=== PATIENT | female | born 1990 | race African-American/Black ===

== ENCOUNTER 2017-04-07 10:21 | Emergency (ER) | payer MEDICAID ==
[~2017-04-07] VITALS: Ht 160 cm; Wt 65.0 kg
[2017-04-07 10:22] VITALS: BP 111/60
[2017-04-07 11:56] LABS: CLARITY URINE CLEAR (CLEAR); COLOR URINE YELLOW (YELLOW); KETONES URINE 1+ (NEGATIVE); LEUKOCYTE ESTERASE URINE 1+ (NEGATIVE); NITRITE URINE NEGATIVE (NEGATIVE); OCCULT BLOOD URINE NEGATIVE (NEGATIVE); PH URINE 7.5 (4.5-8.0); PROTEIN URINE NEGATIVE (NEGATIVE); SPECIFIC GRAVITY URINE 1.032 (1.005-1.030)
[2017-04-07 12:19] LABS: INR 1.1; PROTHROMBIN TIME 11.4 sec (9.4-11.6)
[2017-04-07 12:21] LABS: BASOPHILS % 0.4 % (0.0-2.0); EOSINOPHILS % 0.3 % (0.0-5.0); HEMATOCRIT. 39.3 % (36.0-48.0); HEMOGLOBIN. 13.2 g/dL (12.0-16.0); LYMPHOCYTES % 21.6 % (20.0-50.0); MEAN CORPUSCULAR HEMOGLOBIN 30.5 pg (28.0-32.0); MEAN CORPUSCULAR VOLUME 90.8 fL (81.0-99.0); MEAN PLATELET VOLUME 9.7 fl (7.4-10.4); NEUTROPHILS % 69.7 % (40.0-76.0); PLATELET 210 x1000/uL (130-400); RED BLOOD CELL COUNT 4.33 mill/uL (4.2-5.4); RED CELL DISTRIBUTION WIDTH 13.7 % (11.6-14.6)
[2017-04-07 12:24] LABS: CHLORIDE 103 mEq/L (98-107)
[2017-04-07 12:39] LABS: B-HCG QUANTITATIVE 75842 mIU/mL (<3)
== END 2017-04-07 13:38 | disposition home or self-care (01) ==
LOC: ER 10:29
DX: O26.891 Other specified pregnancy related conditions, first trimester (principal); R10.30 Lower abdominal pain, unspecified; O21.9 Vomiting of pregnancy, unspecified; O23.41 Unspecified infection of urinary tract in pregnancy, first trimester; Z3A.01 Less than 8 weeks gestation of pregnancy
CPT/HCPCS: 36415; 76801; 80053; 81001; 81025; 83690; 84702; 85025; 85610; 86850; 86900; 99285

== ENCOUNTER 2017-11-14 15:26 | Emergency (ER) | payer MEDICAID ==
[~2017-11-14] VITALS: Ht 157.5 cm; Wt 68.0 kg
[2017-11-14] MEDS ORDERED: ACETAMINOPHEN 325MG TABLET PO STA (15:41)
[2017-11-14] MEDS ORDERED: ONDANSETRON HCL 4MG/2ML INJ IV STA (15:41)
[2017-11-14] MEDS ORDERED: SODIUM CHLORIDE 0.9% 1000ML BAG (SEPSIS BOLUS) IV ONE (15:45)
[2017-11-14 16:05] LABS: BASOPHILS % 0.5 % (0.0-2.0); EOSINOPHILS % 0.1 % (0.0-5.0); HEMATOCRIT. 42.5 % (36.0-48.0); HEMOGLOBIN. 14.6 g/dL (12.0-16.0); LYMPHOCYTES % 14.1 % (20.0-50.0); MEAN CORPUSCULAR HEMOGLOBIN 31.7 pg (28.0-32.0); MEAN CORPUSCULAR VOLUME 92.2 fL (81.0-99.0); MEAN PLATELET VOLUME 9.6 fl (7.4-10.4); MONOCYTES % 5.5 % (2.0-8.0); NEUTROPHILS % 79.8 % (40.0-76.0); PLATELET 207 x1000/uL (130-400); RED BLOOD CELL COUNT 4.61 mill/uL (4.2-5.4); RED CELL DISTRIBUTION WIDTH 13.8 % (11.6-14.6)
[2017-11-14 16:11] LABS: CHLORIDE 102 mEq/L (98-107)
[2017-11-14 16:18] LABS: ETHANOL BLOOD < 10 mg/dL
[2017-11-14 16:21] LABS: INR 1.1; PROTHROMBIN TIME 11.4 sec (9.1-11.1)
[2017-11-14 16:41] LABS: B-HCG QUANTITATIVE 66160 mIU/mL (<3)
[2017-11-14 16:52] LABS: CLARITY URINE CLOUDY (CLEAR); COLOR URINE DARK YELLOW (YELLOW); KETONES URINE 3+ (NEGATIVE); LEUKOCYTE ESTERASE URINE 1+ (NEGATIVE); NITRITE URINE NEGATIVE (NEGATIVE); OCCULT BLOOD URINE NEGATIVE (NEGATIVE); PH URINE 5.5 (4.5-8.0); PROTEIN URINE TRACE (NEGATIVE); SPECIFIC GRAVITY URINE 1.041 (1.005-1.030)
[2017-11-14 17:03] LABS: *AMPHETAMINES SCREEN URINE NEGATIVE (NEGATIVE); *BARBITURATES SCREEN URINE NEGATIVE (NEGATIVE); *BENZODIAZEPINES SCREEN URINE NEGATIVE (NEGATIVE); *COCAINE SCREEN URINE NEGATIVE (NEGATIVE)
[2017-11-14 17:04] LABS: METHADONE URINE SCREEN NEGATIVE (NEGATIVE); OPIATES URINE SCREEN NEGATIVE (NEGATIVE); PHENCYCLIDINE URINE SCREEN NEGATIVE (NEGATIVE)
[2017-11-14 17:05] LABS: CANNABINOID URINE SCREEN PRESUMTIVE POSITIVE (NEGATIVE)
[2017-11-14 20:40] VITALS: BP 104/57
== END 2017-11-14 20:48 | disposition home or self-care (01) ==
LOC: ER 15:45
DX: O20.0 Threatened abortion (principal); O23.31 Infections of other parts of urinary tract in pregnancy, first trimester; F12.10 Cannabis abuse, uncomplicated; O21.0 Mild hyperemesis gravidarum; Z3A.01 Less than 8 weeks gestation of pregnancy
CPT/HCPCS: 36415; 76801; 76817; 80053; 80305; 81003; 81025; 84702; 85025; 85610; 86850; 86900; 86901; 87086; 87804; 96361; 96374; 99285; G0482; J2405; J7030

== ENCOUNTER 2020-12-09 16:26 | Emergency (ER) | payer MEDICAID ==
[~2020-12-09] VITALS: Ht 157.5 cm; Wt 69.0 kg
[2020-12-09] MEDS ORDERED: METOCLOPRAMIDE HCL 10MG/2ML VIAL IV STA (19:48)
[2020-12-09] MEDS ORDERED: SODIUM CHLORIDE 0.9% 1,000 ML IV ONE (20:00)
[2020-12-09 20:34] LABS: BASOPHILS % 0.3 % (0.0-2.0); EOSINOPHILS % 0.2 % (0.0-5.0); HEMOGLOBIN. 13.4 g/dL (12.0-16.0); MEAN CORPUSCULAR HEMOGLOBIN 31.8 pg (28.0-32.0); MEAN CORPUSCULAR VOLUME 92.9 fL (81.0-99.0); MEAN PLATELET VOLUME 9.9 fl (7.4-10.4); MONOCYTES % 5.8 % (2.0-8.0); NEUTROPHILS % 78.7 % (40.0-76.0); PLATELET 218 x1000/uL (130-400); RED CELL DISTRIBUTION WIDTH 12.9 % (11.6-14.6)
[2020-12-09 20:37] LABS: CHLORIDE 103 mEq/L (98-107)
[2020-12-09 20:38] LABS: CLARITY URINE CLEAR (CLEAR); COLOR URINE DARK YELLOW (YELLOW); KETONES URINE 4+ (NEGATIVE); LEUKOCYTE ESTERASE URINE NEGATIVE (NEGATIVE); NITRITE URINE NEGATIVE (NEGATIVE); OCCULT BLOOD URINE NEGATIVE (NEGATIVE); PROTEIN URINE TRACE (NEGATIVE); SPECIFIC GRAVITY URINE 1.035 (1.005-1.030)
[2020-12-09 20:57] LABS: METHADONE URINE SCREEN NEGATIVE (NEGATIVE); OPIATES URINE SCREEN NEGATIVE (NEGATIVE); PHENCYCLIDINE URINE SCREEN NEGATIVE (NEGATIVE)
[2020-12-09 20:58] LABS: *AMPHETAMINES SCREEN URINE NEGATIVE (NEGATIVE); *BARBITURATES SCREEN URINE NEGATIVE (NEGATIVE); *BENZODIAZEPINES SCREEN URINE NEGATIVE (NEGATIVE); *COCAINE SCREEN URINE NEGATIVE (NEGATIVE)
[2020-12-09 21:13] LABS: B-HCG QUANTITATIVE 123052 mIU/mL (<3)
[2020-12-09 21:16] LABS: CANNABINOID URINE SCREEN PRESUMTIVE POSITIVE (NEGATIVE)
[2020-12-09] MEDS ORDERED: CEPH500C2 MT (22:00)
[2020-12-09] MEDS ORDERED: METO-293 MT (22:00)
[2020-12-09] MEDS ORDERED: CEPHALEXIN 250MG CAPSULE PO ONE (22:00)
[2020-12-09 22:16] VITALS: BP 112/65
== END 2020-12-09 22:28 | disposition home or self-care (01) ==
LOC: ER 16:26
DX: O23.41 Unspecified infection of urinary tract in pregnancy, first trimester (principal); B96.89 Other specified bacterial agents as the cause of diseases classified elsewhere; N39.0 Urinary tract infection, site not specified; O99.321 Drug use complicating pregnancy, first trimester; F12.90 Cannabis use, unspecified, uncomplicated; Z3A.01 Less than 8 weeks gestation of pregnancy
CPT/HCPCS: 36415; 76801; 76817; 80053; 80305; 81003; 81025; 83690; 84702; 85025; 96361; 96374; 99284; J2765; J7030

== ENCOUNTER 2020-12-18 16:16 | Emergency (ER) | payer MEDICAID ==
[~2020-12-18] VITALS: Ht 157.5 cm; Wt 66.5 kg
[~2020-12-18 16:16] MED LIST: CEPH500C2 MT; METO-293 MT
[2020-12-18 20:28] LABS: BASOPHILS % 0.6 % (0.0-2.0); EOSINOPHILS % 0.2 % (0.0-5.0); HEMATOCRIT. 44.5 % (36.0-48.0); HEMOGLOBIN. 15.2 g/dL (12.0-16.0); LYMPHOCYTES % 13.8 % (20.0-50.0); MEAN CORPUSCULAR HEMOGLOBIN 31.6 pg (28.0-32.0); MEAN CORPUSCULAR VOLUME 92.3 fL (81.0-99.0); MEAN PLATELET VOLUME 9.9 fl (7.4-10.4); MONOCYTES % 6.7 % (2.0-8.0); NEUTROPHILS % 78.7 % (40.0-76.0); RED BLOOD CELL COUNT 4.82 mill/uL (4.2-5.4); RED CELL DISTRIBUTION WIDTH 12.7 % (11.6-14.6)
[2020-12-18 20:29] LABS: PLATELET 235 x1000/uL (130-400)
[2020-12-18 20:34] LABS: CHLORIDE 102 mEq/L (98-107)
[2020-12-18 21:01] LABS: B-HCG QUANTITATIVE 185270 mIU/mL (<3)
[2020-12-18 21:51] LABS: CLARITY URINE CLEAR (CLEAR); COLOR URINE DARK YELLOW (YELLOW); KETONES URINE 4+ (NEGATIVE); LEUKOCYTE ESTERASE URINE NEGATIVE (NEGATIVE); NITRITE URINE NEGATIVE (NEGATIVE); OCCULT BLOOD URINE NEGATIVE (NEGATIVE); PROTEIN URINE 1+ (NEGATIVE); SPECIFIC GRAVITY URINE 1.041 (1.005-1.030)
[2020-12-18] MEDS ORDERED: SODIUM CHLORIDE 0.9% 1,000 ML IV ONE (23:00)
[2020-12-18] MEDS ORDERED: ONDANSETRON HCL 4MG/2ML INJ IV ONE (23:00)
[2020-12-18] MEDS ORDERED: POTASSIUM CHLORIDE 20MEQ TABLET SR PO ONE (23:00)
[2020-12-19] MEDS ORDERED: CEFTRIAXONE 1 G PREMIX 50 ML IV ONE (01:00)
[2020-12-19 01:56] VITALS: BP 112/62
== END 2020-12-19 02:47 | disposition home or self-care (01) ==
LOC: ER 16:16
DX: O21.0 Mild hyperemesis gravidarum (principal); E87.6 Hypokalemia; O23.31 Infections of other parts of urinary tract in pregnancy, first trimester; N39.0 Urinary tract infection, site not specified; Z3A.01 Less than 8 weeks gestation of pregnancy; F12.10 Cannabis abuse, uncomplicated
CPT/HCPCS: 36415; 80053; 81003; 81025; 84702; 85025; 96361; 96365; 96375; 99284; J0696; J2405; J7030

== ENCOUNTER 2022-07-23 22:57 | Emergency (ER) | payer MEDICAID ==
[~2022-07-23] VITALS: Ht 157.5 cm; Wt 69.0 kg
[2022-07-23 23:28] VITALS: BP 121/69; PULSE 68; RESP 18; O2SAT 99
[2022-07-24] MEDS ORDERED: LIDOCAINE HCL/PF 1% 10 MG/ML 5ML VIAL INFIL ONE (00:45)
[2022-07-24] MEDS ORDERED: CEPH500C2 MT (01:45)
[2022-07-24] MEDS ORDERED: ACET-2708 MT (01:54)
[2022-07-24] MEDS ORDERED: HYDROCODONE/ACETAMINOPHEN 5/325MG TABLET PO ONE (02:00)
[2022-07-24] MEDS ORDERED: ACETAMINOPHEN 325MG TABLET PO ONE (02:00)
== END 2022-07-24 02:08 | disposition home or self-care (01) ==
LOC: ER 22:57
DX: L03.011 Cellulitis of right finger (principal); Z68.27 Body mass index [BMI] 27.0-27.9, adult
CPT/HCPCS: 10060; 99283; J3490; Z7610 ×2

== ENCOUNTER 2022-07-28 18:34 | Emergency (ER) | payer MEDICAID ==
[~2022-07-28] VITALS: Ht 167.6 cm; Wt 67.0 kg
[~2022-07-28 18:34] MED LIST changes: +ACET-2708 MT
[2022-07-28 18:52] VITALS: BP 103/58
[2022-07-29] MEDS ORDERED: SULF1TAB47 MT (00:41)
== END 2022-07-28 20:00 | disposition left against medical advice (07) ==
LOC: ER 18:34
DX: M79.89 Other specified soft tissue disorders (principal); Z53.21 Procedure and treatment not carried out due to patient leaving prior to being seen by health care provider
CPT/HCPCS: 99281

== ENCOUNTER 2022-07-28 20:48 | Emergency (ER) | payer MEDICAID ==
[~2022-07-28] VITALS: Ht 157.5 cm; Wt 81.2 kg
[2022-07-28 21:06] VITALS: BP 116/69
[2022-07-28] MEDS ORDERED: LIDOCAINE HCL/PF 1% 10 MG/ML 5ML VIAL INFIL ONE (23:30)
[2022-07-29] MEDS ORDERED: SULF1TAB47 MT (00:41)
== END 2022-07-29 01:15 | disposition home or self-care (01) ==
LOC: ER 20:48
DX: L03.011 Cellulitis of right finger (principal); F12.90 Cannabis use, unspecified, uncomplicated
CPT/HCPCS: 99283; Z7610

== ENCOUNTER 2023-05-28 19:31 | Emergency (ER) | payer MEDICAID ==
[~2023-05-28] VITALS: Ht 157.5 cm; Wt 68.0 kg
[~2023-05-28 19:31] MED LIST changes: +SULF1TAB47 MT
[2023-05-28 19:36] VITALS: BP 113/73; PULSE 70; RESP 18; TEMP 97.9; O2SAT 98
== END 2023-05-28 22:39 | disposition left against medical advice (07) ==
LOC: ER 19:31
DX: M25.512 Pain in left shoulder (principal); F12.10 Cannabis abuse, uncomplicated; Z98.890 Other specified postprocedural states
CPT/HCPCS: 99283

== ENCOUNTER 2024-01-31 22:33 | Emergency (ER) | payer SELFPAY ==
[~2024-01-31] VITALS: Ht 157.5 cm; Wt 78.0 kg
[2024-01-31 22:39] VITALS: BP 103/62; PULSE 82; RESP 18; TEMP 98; O2SAT 100
[2024-01-31] MEDS ORDERED: LIDOCAINE 5% PATCH TOP SCH (22:45)
[2024-01-31] MEDS ORDERED: ACETAMINOPHEN 325MG TABLET PO ONE (22:45)
[2024-02-01 01:08] LABS: HCG SCREEN NEGATIVE
[2024-02-01] MEDS ORDERED: ACETAMINOPHEN 325MG TABLET PO NR (01:15)
== END 2024-01-31 22:44 ==
LOC: ER 22:33
DX: M54.6 Pain in thoracic spine (principal); F12.10 Cannabis abuse, uncomplicated; Z79.899 Other long term (current) drug therapy; Z98.890 Other specified postprocedural states; V49.59XA Passenger injured in collision with other motor vehicles in traffic accident, initial encounter; Y93.89 Activity, other specified; Y92.89 Other specified places as the place of occurrence of the external cause; Y99.8 Other external cause status
CPT/HCPCS: 84703; 99283

== ENCOUNTER 2024-02-07 09:12 | Emergency (ER) | payer SELFPAY | END 2024-02-07 09:26 | disposition left against medical advice (07) | LOC: ER 09:12 | DX: M54.9 Dorsalgia, unspecified (principal); Z53.21 Procedure and treatment not carried out due to patient leaving prior to being seen by health care provider ==

== ENCOUNTER 2024-09-25 17:42 | Emergency (ER) | payer MEDICAID ==
[~2024-09-25] VITALS: Ht 162.6 cm; Wt 72.0 kg
[2024-09-25 17:50] VITALS: O2SAT 98
[2024-09-25 20:11] VITALS: BP 155/87; PULSE 99; RESP 16; TEMP 36.7; O2SAT 99
== END 2024-09-25 20:14 ==
LOC: ER 17:42
DX: T74.21XA Adult sexual abuse, confirmed, initial encounter (principal); Z98.890 Other specified postprocedural states; Z79.899 Other long term (current) drug therapy; Y92.481 Parking lot as the place of occurrence of the external cause
CPT/HCPCS: 99283; Z7610 ×2; A4606

== ENCOUNTER 2024-11-15 10:14 | Emergency (ER) | payer MEDICAID ==
[~2024-11-15] VITALS: Ht 157.5 cm; Wt 82.0 kg
[2024-11-15 10:17] VITALS: O2SAT 100
[2024-11-15 11:36] LABS: BASOPHILS % 0.7 % (0.0-2.0); EOSINOPHILS % 0.3 % (0.0-5.0); HEMATOCRIT. 35.7 % (36.0-48.0); HEMOGLOBIN. 11.9 g/dL (12.0-16.0); LYMPHOCYTES % 23.7 % (20.0-50.0); MEAN PLATELET VOLUME 9.2 fl (7.4-10.4); MONOCYTES % 7.1 % (2.0-8.0); NEUTROPHILS % 68.2 % (40.0-76.0); PLATELET 213 x1000/uL (130-400); RED BLOOD CELL COUNT 3.87 mill/uL (4.2-5.4); RED CELL DISTRIBUTION WIDTH 13.6 % (11.6-14.6)
[2024-11-15 11:51] LABS: CREATININE 0.6 mg/dL (0.6-1.0); UREA NITROGEN BLOOD 5 mg/dL (9-23)
[2024-11-15 12:06] LABS: B-HCG QUANTITATIVE 141088 mIU/mL (<6)
[2024-11-15] MEDS ORDERED: TOPUD PO (12:22)
[2024-11-15 12:39] VITALS: BP 117/52; PULSE 65; RESP 13; TEMP 37; O2SAT 100
== END 2024-11-15 12:49 | disposition home or self-care (01) ==
LOC: ER 10:14
DX: O20.0 Threatened abortion (principal); Z3A.01 Less than 8 weeks gestation of pregnancy
CPT/HCPCS: 36415; 76801; 80048; 81025; 84702; 85025; 86850; 86900; 99284

== ENCOUNTER 2024-11-20 21:16 | Emergency (ER) | payer MEDICAID ==
[~2024-11-20] VITALS: Ht 157.5 cm; Wt 83.0 kg
[~2024-11-20 21:16] MED LIST changes: +TOPUD PO
[2024-11-20 21:52] VITALS: O2SAT 99
[2024-11-20 23:35] LABS: BASOPHILS % 0.4 % (0.0-2.0); EOSINOPHILS % 0.3 % (0.0-5.0); HEMATOCRIT. 37.6 % (36.0-48.0); HEMOGLOBIN. 12.6 g/dL (12.0-16.0); LYMPHOCYTES % 21.9 % (20.0-50.0); MEAN PLATELET VOLUME 9.9 fl (7.4-10.4); MONOCYTES % 7.3 % (2.0-8.0); NEUTROPHILS % 70.1 % (40.0-76.0); PLATELET 208 x1000/uL (130-400); RED BLOOD CELL COUNT 4.10 mill/uL (4.2-5.4); RED CELL DISTRIBUTION WIDTH 13.7 % (11.6-14.6)
[2024-11-20 23:44] LABS: CLARITY URINE CLEAR (CLEAR); COLOR URINE YELLOW (YELLOW); GLUCOSE URINE NEGATIVE (NEGATIVE); KETONES URINE 1+ (NEGATIVE); LEUKOCYTE ESTERASE URINE NEGATIVE (NEGATIVE); NITRITE URINE NEGATIVE (NEGATIVE); OCCULT BLOOD URINE NEGATIVE (NEGATIVE); PH URINE 6.5 (4.5-8.0); PROTEIN URINE NEGATIVE (NEGATIVE); SPECIFIC GRAVITY URINE 1.031 (1.005-1.030); UROBILINOGEN URINE 1.0 E.U./dL (0.2-1.0)
[2024-11-20 23:47] LABS: CREATININE 0.7 mg/dL (0.6-1.0); UREA NITROGEN BLOOD 9 mg/dL (9-23)
[2024-11-21] MEDS: ACETAMINOPHEN 325MG TABLET PO ONE (00:13)
[2024-11-21 01:23] LABS: B-HCG QUANTITATIVE 198616 mIU/mL (<6)
[2024-11-21 01:44] VITALS: BP 104/65; PULSE 72; RESP 12; TEMP 37.2; O2SAT 99
== END 2024-11-21 01:52 | disposition home or self-care (01) ==
LOC: ER 21:16
DX: O20.0 Threatened abortion (principal); Z3A.01 Less than 8 weeks gestation of pregnancy
CPT/HCPCS: 36415; 76801; 80048; 81003; 81025; 84702; 85025; 86850; 86900; 99284